=== PATIENT | male | born 1965 | race Caucasian/White ===

== ENCOUNTER → 2017-03-12 | Outpatient (CLI) | payer MEDICARE, MEDICAID ==
[2017-03-12 21:30] LABS: HEMATOCRIT 44.9 % (37.9-51.0); HGB HCT DIFFERENCE 0.1; MEAN CORPUSCULAR HEMOGLOBIN 29.7 pg (27.0-33.4); MEAN CORPUSCULAR HGB CONC 33.4 g/dL (32.0-36.0); MEAN CORPUSCULAR VOLUME 89 fl (80-97); RED BLOOD COUNT 5.05 10^6/uL (4.35-5.55); RED CELL DISTRIBUTION WIDTH 13.4 % (11.5-14.0); WHITE BLOOD COUNT 8.7 10^3/uL (4.0-10.5)
[2017-03-12 21:45] LABS: BASOPHILS % (MANUAL) 0 % (0-2); EOSINOPHILS % (MANUAL) 0 % (0-6); LYMPHOCYTES % (MANUAL) 41 % (13-45); TOTAL CELLS COUNTED 100
[2017-03-12 21:47] LABS: BURR CELLS SLIGHT; OVALOCYTES SLIGHT
[2017-03-12 21:48] LABS: POIKILOCYTOSIS SLIGHT
== END ==
LOC: LAB 21:15
PROVIDERS: ATTEND Internal Medicine
DX: F20.0 Paranoid schizophrenia (principal); Z79.899 Other long term (current) drug therapy
CPT/HCPCS: 36415; 85025

== ENCOUNTER 2017-11-21 10:51 | Emergency (ER) | payer MEDICARE, MEDICAID ==
[2017-11-21 11:17] VITALS: BP 127/80
[2017-11-21] MEDS ORDERED: HYDROCODONE/ACETAMINOPHEN 5-325 MG TABLET PO ONE (13:20)
--- NOTE | 2017-11-21 13:21 | ER Document Report ---
HPI - HPI Patient complains to provider of: Right knee pain Onset: Other - 5 Days Onset/Duration: Persistent Quality of pain: Achy Pain Level: 4 Context: Presents complaining of her right knee and thigh pain for the past 5-6 days. Patient denies any injury. Patient complains of pain with ambulation. Patient states pain improves whenever he is lying down. Associated Symptoms: Other - Right knee and thigh pain. denies: Fever, Headache , Vomiting Exacerbated by: Standing, Walking Relieved by: Supine, Remaining still Similar symptoms previously: No Recently seen / treated by doctor: No - ROS ROS below otherwise negative: Yes Systems Reviewed and Negative: Yes All other systems reviewed and negative - CONSTITUTIONAL Constitutional: DENIES: Fever, Chills - GASTROINTESTINAL Gastrointestinal: DENIES: Nausea, Patient vomiting - MUSCULOSKELETAL Musculoskeletal: REPORTS: Extremity pain - DERM Skin Color: Normal Skin Problems: None Past Medical History - General Information source: Patient, Transfer Record - Social History Smoking Status: Never Smoker Frequency of alcohol use: None Drug Abuse: None Occupation: none Lives with: Other - [facility] Family History: Reviewed & Not Pertinent Psychiatric Medical History: Reports: Hx Schizophrenia Vertical Provider Document - CONSTITUTIONAL Agree With Documented VS: Yes Exam Limitations: No Limitations General Appearance: WD/WN, No Apparent Distress - INFECTION CONTROL TRAVEL OUTSIDE OF THE [place] IN LAST 30 DAYS: No - HEENT HEENT: Atraumatic, Normocephalic - NECK Neck: Normal Inspection, Supple - RESPIRATORY Respiratory: Breath Sounds Normal, No Respiratory Distress O2 Sat by Pulse Oximetry: 98 - CARDIOVASCULAR Cardiovascular: Regular Rate, Regular Rhythm Pulses: Normal: Posterior tibial, Dorsalis pedis - BACK Back: Normal Inspection - MUSCULOSKELETAL/EXTREMETIES Musculoskeletal/Extremeties: MAEW, Tender - Right knee joint tenderness with effusion, Edema. negative: Eccymosis Notes: Normal skin color and temperature overlying right knee joint - NEURO Level of Consciousness: Awake, Alert, Appropriate Motor/Sensory: No Motor Deficit - DERM Integumentary: Warm, Dry, No Rash Course - Re-evaluation Re-evalutation: 11/21/17 14:24 The patient has been informed that they may have pre-hypertension or hypertension based on a blood pressure reading in the emergency department. I recommend that patient call the primary care provider listed on their discharge instructions or a physician of their choice by this week to arrange follow-up for further evaluation of possible pre-hypertension or hypertension. 11/21/17 14:47 Controlled substance database reviewed - Vital Signs Vital signs: Temp Pulse Resp BP Pulse Ox 99.2 F 96 18 127/80 H 98 11/21/17 11:15 11/21/17 11:15 11/21/17 11:15 11/21/17 11:15 11/21/17 11:15 - Diagnostic Test Radiology reviewed: Image reviewed, Reports reviewed Procedures - Immobilization Right Knee Pre-Proc Neuro Vasc Exam: Normal Immobilizer type: Han wrap, Knee immobilizer Performed by: RN Post-Proc Neuro Vasc Exam: Normal Alignment checked and good: Yes Discharge - Discharge Clinical Impression: Arthritis, Knee effusion, right, Elevated blood pressure reading Condition: Stable Disposition: HOME, SELF-CARE Instructions: Arthritis ([facility]), Knee Effusion ([facility]), Knee Immobilizing Splint ( [facility]) Additional Instructions: Return immediately for any new or worsening symptoms Followup with your primary care provider, call tomorrow to make a followup appointment Follow-up with orthopedic provider, call tomorrow for an appointment Prescriptions: Hydrocodone/Acetaminophen [[place] 5-325 Tablet] 1 each PO Q6 PRN #12 tablet PRN Reason: Naproxen [Naprosyn 250 Nmg Tablet] 1 tab PO BID #14 tablet Walker [Folding Walker] 1 each MC ASDIR PRN #1 each PRN Reason: Referrals: [facility] FOR SURGERY ([facility]) [Provider Group] - Follow up tomorrow
--- NOTE | 2017-11-21 14:07 | RADIOLOGY REPORT (SQ) ---
EXAM DESCRIPTION: KNEE RIGHT 4 VIEWS COMPLETED DATE/TIME: 11/21/2017 1:57 pm REASON FOR STUDY: knee pain COMPARISON: None. NUMBER OF VIEWS: Four views. TECHNIQUE: AP, lateral, and both oblique radiographic images acquired of the right knee. LIMITATIONS: None. FINDINGS: MINERALIZATION: Normal. BONES: No acute fracture or dislocation. No worrisome bone lesions. Joint space narrowing in all 3 co mpartments with osteophytes. JOINT: Small suprapatellar effusion. No chondrocalcinosis. OTHER: No other significant finding. IMPRESSION: DEGENERATIVE JOINT DISEASE. SMALL JOINT EFFUSION. NO ACUTE FINDINGS. TECHNICAL DOCUMENTATION: JOB ID: [id number] [employer]- All Rights Reserved
--- NOTE | 2017-11-21 14:07 | RADIOLOGY REPORT (SQ) ---
EXAM DESCRIPTION: FEMUR RIGHT COMPLETED DATE/TIME: 11/21/2017 1:57 pm REASON FOR STUDY: knee/thigh pain COMPARISON: None. NUMBER OF VIEWS: Two views. TECHNIQUE: Two radiographic images acquired of the right femur to include hip and knee in at least o ne projection. LIMITATIONS: None. FINDINGS: MINERALIZATION: Normal. BONES: No acute fracture. No worrisome bone lesions. SOFT TISSUES: No obvious swelling or foreign body. OTHER: Degenerative changes in the knee. No other significant finding. IMPRESSION: NEGATIVE STUDY OF THE RIGHT FEMUR. NO RADIOGRAPHIC EVIDENCE OF ACUTE INJURY. TECHNICAL DOCUMENTATION: JOB ID: [id number] [employer]- All Rights Reserved
== END 2017-11-21 15:55 | disposition home or self-care (01) ==
LOC: ER 10:51
DX: M17.9 Osteoarthritis of knee, unspecified (principal); M25.461 Effusion, right knee; R03.0 Elevated blood-pressure reading, without diagnosis of hypertension; M25.561 Pain in right knee
CPT/HCPCS: 99284; 73552; 73564; L1830; A9270

== ENCOUNTER 2020-08-28 12:20 | Emergency (ER) | payer MEDICARE, MEDICAID ==
--- NOTE | 2020-08-28 13:24 | ER Document Report ---
ED Extremity Problem, Lower - General Chief Complaint: Knee Pain Stated Complaint: KNEE PAIN Time Seen by Provider: 08/28/20 12:38 Primary Care Provider: VALERIY KEVIN MD [Primary Care Provider] - Follow up as needed Notes: 55-year-old male presents to the ER after stating his knee buckled. States both his knees are bothering but his left knee was hurting him the most. Stated that his knee buckled from underneath him he did not hit his head or neck or have a loss of consciousness. Scribes a mild aching pain in his left knee. Worse with movement better with rest and elevation. Denies any fever chills denies any chest pain or shortness of breath. Pain does not radiate. TRAVEL OUTSIDE OF THE [place] IN LAST 30 DAYS: No - Related Data Allergies/Adverse Reactions: No Known Allergies Allergy (Unverified 11/21/17 10:53) Past Medical History - Social History Smoking Status: Unknown if Ever Smoked Family History: Reviewed & Not Pertinent Renal/ Medical History: Denies: Hx Peritoneal Dialysis Psychiatric Medical History: Reports: Hx Schizophrenia Physical Exam - Vital signs Vitals: Temp Pulse Resp BP Pulse Ox 98.5 F 97 17 123/68 99 08/28/20 12:27 08/28/20 12:27 08/28/20 12:27 08/28/20 12:27 08/28/20 12:27 - Notes Notes: GENERAL_APPEARANCE: well_nourished, alert, cooperative, no_acute_distress, no_obvious_discomfort. VITALS: reviewed, see vital signs table. HEAD: no_swelling\tenderness on the head. EYES: Sclera anicteric conjunctiva_clear. NOSE: no_nasal_discharge. MOUTH: (-)decreased moisture. THROAT: no_tonsilar_inflammation, no_airway_obstruction. no_lymphadenopathy NECK: supple, no_neck_tenderness, (-)thyromegaly. BACK: no_back_tenderness. EXTREMITIES: good pulses in all_extremities, lateral knee pain the right is really unremarkable on exam the left has a little bit of pain on patellar grind drawer signs of the knee are negative no_edema. SKIN: warm, dry, good_color, no_rash. MENTAL_STATUS: speech_clear, oriented_X_3, normal_affect, responds_appropriately to questions. Course - Re-evaluation Re-evalutation: 08/28/20 13:24 Patient had a ground-level fall due to his knee buckling. He is completely neurologically intact. Very pleasant. We will get an x-ray of the need to be sure there is no significant abnormalities there is no signs of trauma on the patient. He is appropriate. 08/28/20 13:52 X-ray showed no acute abnormalities. Give the patient ibuprofen. - Vital Signs Vital signs: Temp Pulse Resp BP Pulse Ox 98.5 F 97 17 123/68 99 08/28/20 12:27 08/28/20 12:27 08/28/20 12:27 08/28/20 12:27 08/28/20 12:27 - Diagnostic Test Radiology reviewed: Reports reviewed Radiology results interpreted by me: 08/28/20 13:52 Knee X-Ray 08/28/20 13:03 IMPRESSION: NEGATIVE STUDY OF THE LEFT KNEE. NO EXPLANATION FOR PAIN. Discharge - Discharge Clinical Impression: Arthralgia of knee, left Condition: Good Disposition: HOME, SELF-CARE Instructions: Sprained Knee ([facility]) Additional Instructions: Follow-up with your family doctor for further care Referrals: VALERIY KEVIN MD [Primary Care Provider] - Follow up as needed
--- NOTE | 2020-08-28 13:29 | RADIOLOGY REPORT (SQ) ---
EXAM DESCRIPTION: KNEE LEFT 2 VIEWS IMAGES COMPLETED DATE/TIME: 08/28/2020 1:13 pm REASON FOR STUDY: pain COMPARISON: None. NUMBER OF VIEWS: Two views. TECHNIQUE: AP and lateral radiographic images acquired of the left knee. LIMITATIONS: None. FINDINGS: MINERALIZATION: Normal. BONES: No acute fracture or dislocation. No worrisome bone lesions. No significant osteophytes. JOINT: No effusion. No chondrocalcinosis. OTHER: No other significant finding. IMPRESSION: NEGATIVE STUDY OF THE LEFT KNEE. NO EXPLANATION FOR PAIN. TECHNICAL DOCUMENTATION: JOB ID: [id number] [employer]- All Rights Reserved Reading location - IP/workstation name: [email or web address]
[2020-08-28] MEDS ORDERED: IBUPROFEN 400 MG TABLET PO ONE (13:52)
[2020-08-28 18:33] VITALS: BP 126/70
== END 2020-08-28 17:30 | disposition home or self-care (01) ==
LOC: ER 12:20
DX: M25.562 Pain in left knee (principal)
CPT/HCPCS: 99283; 73560; A9270; J3490